=== PATIENT | male | born 1990 | race Caucasian/White ===

== ENCOUNTER 2018-12-30 12:22 | Emergency (ER) | payer OTHER, MEDICAID ==
[2018-12-30] MEDS: IBUPROFEN 800 MG TAB PO (15:06)
== END 2018-12-30 15:54 | disposition home or self-care (01) ==
LOC: E/R 12:22
DX: R07.9 Chest pain, unspecified (principal); R40.2142 Coma scale, eyes open, spontaneous, at arrival to emergency department; R40.2362 Coma scale, best motor response, obeys commands, at arrival to emergency department; R40.2252 Coma scale, best verbal response, oriented, at arrival to emergency department
CPT/HCPCS: 71045; 82962; 93005; 99284-25